=== PATIENT | male | born 1975 | race Hispanic/Latino ===

== ENCOUNTER 2017-03-25 22:49 | Emergency (ER) | payer OTHER ==
[~2017-03-25] VITALS: Ht 162.6 cm; Wt 80.5 kg
[2017-03-25 23:36] LABS: BASOPHIL COUNT 0.1 K/uL (0-0.1); EOSINOPHIL (%) 0.9 % (0-5); EOSINOPHIL COUNT 0.1 K/uL (0-0.3); HEMATOCRIT 41.5 % (38.0-50.0); IMMATURE GRANULOCYTE (%) 0.6 % (0.0-0.7); IMMATURE GRANULOCYTE COUNT 0.1 K/uL; INSTRUMENT ABS NEUTROPHIL CT 5.7 K/uL; LYMPHOCYTE COUNT 1.9 K/uL (1.0-2.8); MCH 30.1 PG (29.0-34.0); MCHC 34.7 G/DL (30.0-36.0); MCV 86.8 FL (86-99); MEAN PLAT.VOLUME 9.8 uM^3 (9.0-12.4); MONOCYTE (%) 5.6 % (3-12); MONOCYTE COUNT 0.5 K/uL (0-0.8); NEUTROPHIL (%) 68.8 % (45-76); NEUTROPHIL COUNT 5.7 K/uL (1.8-6.4); PLATELET COUNT 233 K/uL (156-360); RBC DIS.WIDTH-CV 11.6 % (11.8-14.6); RBC DIS.WIDTH-SD 37.5 % (39-53); RED BLOOD COUNT 4.78 M/uL (4.00-5.50); WHITE BLOOD COUNT 8.2 K/uL (4.1-10.2)
[2017-03-25 23:48] LABS: CHLORIDE 103 mEq/L (99-109); POTASSIUM 3.9 mEq/L (3.7-5.4); SODIUM 137 mEq/L (136-147)
[2017-03-25 23:49] LABS: GLUCOSE 118 mg/dL (70-99)
[2017-03-25 23:51] LABS: ANION GAP 11 MEQ/L (2-14)
[2017-03-25 23:54] LABS: UREA NITROGEN (BUN) 14 mg/dL (9-23)
[2017-03-26 00:21] LABS: GFR ESTIMATE (CALCULATED) > 59 mL/min/
[2017-03-26 01:51] LABS: TOTAL BILIRUBIN 0.6 mg/dL (0.0-1.0)
[2017-03-26 01:52] LABS: ALKALINE PHOSPHATASE 82 IU/L (3-129)
[2017-03-26 01:55] LABS: DIRECT BILIRUBIN 0.1 mg/dL (0.0-0.3)
[2017-03-26 01:56] LABS: CREATINE KINASE 96 IU/L (1-294); LIPASE 58 U/L (1.0-51.0)
[2017-03-26 02:13] LABS: ADD MIUA? YES; BILIRUBIN NEGATIVE; BLOOD SMALL; COLOR YELLOW ((YELLOW)); GLUCOSE (STRIP) NEGATIVE; KETONES NEGATIVE; LEUKOCYTES NEGATIVE; NITRITE NEGATIVE; PROTEIN (STRIP) 30; SPECIFIC GRAVITY 1.018 (1.000-1.030); UROBILINOGEN 0.2 MG/DL (0.2-1.0)
[2017-03-26 02:19] LABS: BACTERIA RARE /HPF; EPITHELIAL CELLS NONE SEEN /HPF; MUCUS TRACE /LPF; RED BLOOD CELLS 0-5 /HPF (0-5); UCUL ADDED? NO; WHITE BLOOD CELLS 0-5 /HPF (0-5)
[2017-03-26] MEDS ORDERED: ROBITUSSIN AC,T10 ML PO (03:40)
[2017-03-26] MEDS ORDERED: LEVAQUIN750 MG PO (03:40)
[2017-03-26 04:00] VITALS: BP 120/100
== END 2017-03-26 04:01 | disposition home or self-care (01) ==
LOC: EME 22:49 → EXP 22:49
PROVIDERS: Physician Assistant
DX: J18.9 Pneumonia, unspecified organism (principal); Z88.0 Allergy status to penicillin
CPT/HCPCS: 71020; 80048; 80076; 81003; 82550; 83605; 83690; 85025; 87502; 87651 90; 99281; 99285; J7030